=== PATIENT | male | born 1955 | race Caucasian/White ===

== ENCOUNTER → 2020-06-21 12:46 | Outpatient (BNVA) | payer MEDICARE, OTHER, SELFPAY | PROVIDERS: PCP Physician Assistant Medical; Visit Provider Surgery | DX: Z20.822 Contact with and (suspected) exposure to COVID-19 (principal) | CPT/HCPCS: 87635 ==

== ENCOUNTER 2020-06-27 09:02 | Day surgery (SDC) | payer MEDICARE, OTHER, SELFPAY ==
[2020-06-27 09:43] VITALS: BP 140/69; PULSE 73; RESP 18; TEMP 36.4; O2SAT 96; BMI 38.0
[2020-06-27 09:50] LABS: Glucose Point of Care 128 mg/dL (70-110)
[2020-06-27] MEDS: sodium chloride 0.9% 1,000 ML 30 ML IV (09:52)
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
--- NOTE | 2020-06-27 11:16 | W.PM.OPSUD ---
Surgery/Procedure H&P Update DATE OF PROCEDURE: June 27, 2020 DATE H&P PERFORMED: 06/12/20 H&P UPDATE INFORMATION: I have reviewed H&P completed within last 30 days, I have examined patient prior to procedure and No changes to prior documentation PREOP DIAGNOSIS: diagnostic PLANNED PROCEDURE: Operation Date: 06/27/20 10:30 Proposed Procedures p Colonoscopy 98644 K92.1(Not Applicable) - Thiago Rodriguez MD
[2020-06-27 11:50] VITALS: BP 103/64; PULSE 74; RESP 16; TEMP 36.3; O2SAT 95
--- NOTE | 2020-06-27 11:56 | ANE.PACU2 ---
Inpatient post-anesthesia follow up: Airway intact: Yes Vital signs: Temperature 97.3 F Pulse Rate 74 Respiratory Rate 16 Blood Pressure 103/64 Pulse Oximetry 95 Oxygen Delivery Me thod Room Air Oxygen Flow Rate Fraction of Inspir ed Oxygen Hydration adequate: Yes Nausea and vomiting: No Mental status: Baseline
[2020-06-27 12:05] VITALS: BP 139/82; PULSE 72; RESP 16; O2SAT 96
--- NOTE | 2020-06-27 13:31 | ANE.PACU2 ---
Inpatient post-anesthesia follow up: Airway intact: Yes Vital signs: Temperature 97.3 F Pulse Rate 72 Respiratory Rate 16 Blood Pressure 139/82 Pulse Oximetry 96 Oxygen Delivery Me thod Room Air Oxygen Flow Rate Fraction of Inspir ed Oxygen Hydration adequate: Yes Nausea and vomiting: No Pain level: 1 Mental status: Baseline
== END 2020-06-27 12:24 | disposition home or self-care (01) ==
PROVIDERS: PCP Physician Assistant Medical; Visit Provider Surgery
PROC: 0DJD8ZZ Inspection of Lower Intestinal Tract, Via Natural or Artificial Opening Endoscopic (ICD-10-PCS; CPT 45378; principal; 2020-06-27 10:30)
DX: K92.1 Melena (principal); K57.30 Diverticulosis of large intestine without perforation or abscess without bleeding; K64.8 Other hemorrhoids; K63.5 Polyp of colon; K62.1 Rectal polyp; E11.9 Type 2 diabetes mellitus without complications; Z86.010 Personal history of colon polyps; I10 Essential (primary) hypertension; G82.20 Paraplegia, unspecified
CPT/HCPCS: 12345; 36416; 45380; 82962; 88305; J2704; J3490; J7030

== ENCOUNTER → 2025-04-11 14:11 | Outpatient (BNVA) | payer MEDICARE, OTHER, SELFPAY | PROVIDERS: PCP Physician Assistant Medical; Visit Provider Thoracic Surgery (Cardiothoracic Vascular Surgery) | DX: I96 Gangrene, not elsewhere classified (principal); L89.213 Pressure ulcer of right hip, stage 3 | CPT/HCPCS: 97597; 99213 ==

== ENCOUNTER → 2025-04-26 13:12 | Outpatient (BNVA) | payer MEDICARE, OTHER, SELFPAY | PROVIDERS: PCP Physician Assistant Medical; Visit Provider Thoracic Surgery (Cardiothoracic Vascular Surgery) | DX: I96 Gangrene, not elsewhere classified (principal); L89.213 Pressure ulcer of right hip, stage 3 | CPT/HCPCS: 97597; A6212; A6252 ==

== ENCOUNTER → 2025-05-10 13:37 | Outpatient (BNVA) | payer MEDICARE, OTHER, SELFPAY | PROVIDERS: PCP Physician Assistant Medical; Visit Provider Thoracic Surgery (Cardiothoracic Vascular Surgery) | DX: I96 Gangrene, not elsewhere classified (principal); L89.213 Pressure ulcer of right hip, stage 3 | CPT/HCPCS: 97597; A6252 ==